=== PATIENT | male | born 1935 | race Caucasian/White ===

== ENCOUNTER → 2016-07-27 | Outpatient (REF) | payer MEDICARE ==
[2016-07-27 11:25] LABS: BASOPHILS % (AUTO) 0 % (0-2); BILIRUBIN,URINE Negative (Negative); CLARITY,URINE Clear; COLOR,URINE Yellow; EOSINOPHILS # (AUTO) 0.1 10^3uL; EOSINOPHILS % (AUTO) 2 % (0-4); GLUCOSE, URINE (UA) Negative (Negative); LEUKOCYTE ESTERASE ,URINE Negative (Negative); LYMPHOCYTES # (AUTO) 0.9 X10^3; MEAN CORPUSCULAR HEMOGLOBIN 34.4 PG (26.0-34.0); MEAN CORPUSCULAR VOLUME 98 FL (80-100); MEAN PLATELET VOLUME 10.4 FL (6.0-9.5); MONOCYTES # (AUTO) 0.7 X10^3; MONOCYTES % (AUTO) 13 % (3-11); NEUTROPHILS # (AUTO) 3.6 X10^3; NEUTROPHILS % (AUTO) 67 % (51-67); PLATELET COUNT 185 10^3uL (150-450); WHITE BLOOD COUNT 5.29 10^3uL (4.0-11.0)
[2016-07-27 11:36] LABS: ALBUMIN 3.9 g/dL (3.4-5.0); ANION GAP 16.3 MEQ/L (3-15); CALCULATED IONIZED CALCIUM 4.2 mg/dL (3.8-4.6); TOTAL PROTEIN 6.8 g/dL (6.4-8.5)
== END ==
LOC: LAB 11:06
PROVIDERS: ATTEND Family Medicine
DX: R63.5 Abnormal weight gain (principal); F41.1 Generalized anxiety disorder; E66.09 Other obesity due to excess calories; L57.0 Actinic keratosis
CPT/HCPCS: 80053; 81003; 84443; 85025

== ENCOUNTER → 2016-07-31 | Outpatient (CLI) | payer MEDICARE | LOC: LAB 13:27 | PROVIDERS: ATTEND Family Medicine | DX: R73.09 Other abnormal glucose (principal) | CPT/HCPCS: 36415; 83036 ==